=== PATIENT | female | born 1950 ===

== ENCOUNTER 2018-08-06 12:42 | Emergency (ER) | payer OTHER ==
[~2018-08-06] VITALS: Ht 162.6 cm; Wt 67.1 kg
[~2018-08-06 12:42] MED LIST: MEDROLPACK PO; STIOLTO RESPIMAT4 GM IH; XOPENEX0.63 MG/3 IH
[2018-08-06] MEDS ORDERED: ASA81 MG PO (12:59)
[2018-08-06] MEDS ORDERED: DICY20TA PO (13:00)
[2018-08-06] MEDS ORDERED: ZANTAC150 MG PO (13:01)
[2018-08-07] MEDS ORDERED: FLAGYL500MG PO (09:35)
[2018-08-07] MEDS ORDERED: AMOX-CLAV 875-1 EACH PO (09:35)
== END 2018-08-07 10:06 | disposition home or self-care (01) ==
LOC: ER 12:42
DX: A08.8 Other specified intestinal infections (principal); D72.828 Other elevated white blood cell count; B34.9 Viral infection, unspecified; R10.13 Epigastric pain; J11.1 Influenza due to unidentified influenza virus with other respiratory manifestations; Z85.038 Personal history of other malignant neoplasm of large intestine